=== PATIENT | female | born 1950 | race Caucasian/White ===

== ENCOUNTER → 2023-09-07 08:09 | Outpatient (REF) | payer MEDICARE, OTHER, SELFPAY ==
[2023-09-07 10:32] LABS: ALT (SGPT) 21 U/L (0-35); AST (SGOT) 25 U/L (14-36); Albumin 4.1 g/dl (3.5-5.0); Alkaline Phosphatase 129 U/L (38-126); Blood Urea Nitrogen 12 mg/dl (7-17); Calcium 9.4 mg/dl (8.4-10.2); Carbon Dioxide 26 mmol/L (22-30); Chloride 106 mmol/L (98-107); Glucose 102 mg/dl (70-99); Potassium 4.2 mmol/L (3.5-5.1); Sodium 139 mmol/L (135-145); Total Bilirubin 0.5 mg/dl (0.2-1.3); Total Protein 6.7 g/dl (6.3-8.2); Uric Acid 4.9 mg/dl (2.5-6.2); eGFR > 60.00
== END ==
LOC: REG 08:09
PROVIDERS: ATTENDING PHYSICIAN Internal Medicine Rheumatology; FAMILY PHYSICIAN Family Medicine
DX: M81.0 Age-related osteoporosis without current pathological fracture (principal)
CPT/HCPCS: 36415; 80053; 84550

== ENCOUNTER → 2023-12-03 08:06 | Outpatient (REF) | payer MEDICARE, OTHER, SELFPAY ==
[2023-12-03 10:27] LABS: % Basophils 0.3 % (0-2); % Eosinophils 3.1 % (0-6); % Immature Granulocytes 0.1 % (0-0.5); % Lymphocytes 24.3 % (20.5-51.1); % Monocytes 8.4 % (1.7-9.3); % Neutrophils 63.8 % (42.2-75.2); Absolute Eosinophils 0.2 10^3/uL (0-0.7); Absolute Lymphocytes 1.6 10^3/uL (1.2-3.4); Absolute Monocytes 0.6 10^3/uL (0.1-0.6); Absolute Neutrophils 4.3 10^3/uL (1.4-6.5); Hematocrit 45.4 % (37.0-47.0); Hemoglobin 14.5 g/dL (12.0-16.0); Mean Corp Hgb Conc. 31.9 g/dL (33.0-37.0); Mean Corpuscular Hgb 28.4 pg (27.0-31.0); Mean Platelet Volume 11.5 fL (7.4-10.4); Nucleated Red Blood Cells % 0 %; Platelet Count 271 10^3/uL (130-400); White Blood Cell Count 6.7 10^3/uL (4.8-10.8)
[2023-12-03 11:15] LABS: ALT (SGPT) 24 U/L (0-35); AST (SGOT) 29 U/L (14-36); Alkaline Phosphatase 128 U/L (38-126); Blood Urea Nitrogen 12 mg/dl (7-17); Calcium 9.6 mg/dl (8.4-10.2); Carbon Dioxide 26 mmol/L (22-30); Chloride 106 mmol/L (98-107); Glucose 105 mg/dl (70-99); HDL Cholesterol 65 mg/dl; LDL Cholesterol, Calculated 98 mg/dl; Potassium 4.3 mmol/L (3.5-5.1); Sodium 140 mmol/L (135-145); Total Bilirubin 0.5 mg/dl (0.2-1.3); Total Cholesterol 193 mg/dl (50-199); Total Protein 6.9 g/dl (6.3-8.2); Triglyceride 153 mg/dl (10-149); Very Low Density Lipoprotein 30 mg/dl (0-30); eGFR > 60.00
== END ==
LOC: REG 08:06
PROVIDERS: ATTENDING PHYSICIAN Family Medicine
DX: I10 Essential (primary) hypertension (principal); R74.8 Abnormal levels of other serum enzymes; E78.00 Pure hypercholesterolemia, unspecified; D72.819 Decreased white blood cell count, unspecified
CPT/HCPCS: 36415; 80053; 80061; 85025

== ENCOUNTER 2024-09-11 19:36 | Inpatient (IN) | payer MEDICARE, OTHER, SELFPAY ==
[2024-09-11 16:56] VITALS: BP 152/78; BMI 24.2
--- NOTE | 2024-09-11 17:08 | ED.GENMED ---
History of Present Illness
General
Chief Complaint: Breathing Problem
Time Seen by Provider: 09/11/24 17:00
History of Present Illness
History of Present Illness:
Patient is a 73-year-old woman with history of hypertension presenting to the emergency room with respiratory distress. Patient states for the past 2 days she has had a sore throat, fever congestion cough. She states that her family member was
recently diagnosed with the flu. She denies any chest pain. Mild shortness of breath. No nausea. No vomiting. No diarrhea. No leg swelling hemoptysis recent travel malignancy or history of blood clot. Per medics on their arrival she was found
to be 80% on room air. They placed on nasal cannula that brought her up to the mid 80s
Past History
Past History
ED Past Medical History: GERD and Other (Osteoporosis)
Social History
Tobacco: Non-smoker
Alcohol: Occasional
Drug: None
Personal:
Living: with family
Phy Exam
Physical Exam
Physical Exam:
GENERAL: Appears unwell
HEENT: normocephalic, extraocular movements intact, moist oral mucosa
NECK: normal inspection
RESPIRATORY: Mild respiratory distress, coarse breath sounds in all lung field
CARDIOVASCULAR: regular rate and rhythm
ABDOMEN/: soft, non-distended, non-tender to palpation, no rebound or guarding
EXTREMITIES: non-tender, no edema/swelling
NEUROLOGIC: awake and alert, moves all extremities
SKIN: warm
Scores
Heart Failure Risk
Heart Failure Risk Score: Not Applicable
Sepsis
Sepsis Screening
Sepsis Assessment: Sepsis
Sepsis Screen
Sepsis Screen: Sepsis
Date: 09/11/24
Time: 17:55
Course
Orders/Labs/Results
Orders:
Orders
09/11/24 17:06
EKG [Electrocardiogram (*1)] Urgent
Reason for Study: Tachycardia
EKG- Treatment ONCE
CR Chest Portable - 1 View Urgent
Comment:
Reason For Exam: SOB
Reason Study Needs to be Portable: Unable to Transport
09/11/24 17:12
Blood Culture Urgent
SARI Source: Blood/Venous
Specimen Description:
09/11/24 17:15
COVID-19 Antigen Urgent
Source: Nasal Swab
Complete Blood Count/With Diff Urgent
Comprehensive Metabolic Panel Urgent
Lactic Acid Urgent
Blood Culture Urgent
SARI Source: Blood/Venous
Specimen Description:
Influenza A+B Rapid Molecular Urgent
SARI Source: Nasal Swab
Specimen Description:
09/11/24 17:19
Acetaminophen [Tylenol] 1,000 mg PO NOW STA
09/11/24 17:31
Azithromycin 500 mg/250 ml [Zithromax Infusion] 500 mg in 250 ml IV NOW
CefTRIAXone [Rocephin] 1,000 mg IV NOW STA
Ibuprofen [Motrin] 600 mg .ROUTE .STK-MED ONE
09/11/24 17:33
Ibuprofen [Motrin] 600 mg PO NOW STA
09/11/24 17:48
Lactated Ringers [Lr] 1,000 ml IV BOLUS
Abnormal Lab Results
09/11/24
17:15
MPV 11.2 H fL
(7.4-10.4)
Absolute Neuts (auto) 8.1 H 10^3/uL
(1.4-6.5)
Absolute Lymphs (auto) 1.1 L 10^3/uL
(1.2-3.4)
Absolute Monos (auto) 1.1 H 10^3/uL
(0.1-0.6)
Neutrophils % 78.1 H %
(42.2-75.2)
Lymphocytes % 10.6 L %
(20.5-51.1)
Monocytes % 10.8 H %
(1.7-9.3)
Sodium 133 L mmol/L
(135-145)
Glucose 136 H mg/dl
(70-99)
AST 71 H U/L
(14-36)
ALT 63 H U/L
(0-35)
09/11/24 17:15
09/11/24 17:15
Vital Signs
Initial and Last Documented VS:
Initial Vital Signs
Temp Pulse Resp BP Pulse Ox
100.4 F H 98 24 152/78 82
09/11/24 16:56 09/11/24 16:56 09/11/24 16:56 09/11/24 16:56 09/11/24 16:56
Last Documented Vital Signs
Temp Pulse Resp BP Pulse Ox
100.4 F H 96 22 152/78 92
09/11/24 16:56 09/11/24 17:09 09/11/24 17:09 09/11/24 16:56 09/11/24 17:12
MDM/Problems Addressed
Differential Diagnosis Includes:
Patient is a 73-year-old woman presenting to the emergency room with shortness of breath. On arrival patient was in the low 80s on 6 L. We transition her to nonrebreather that brought her up to the low 90s She is febrile. Exam does coarse breath
sounds in all lung ambrose. Differential clues of viral infection versus pneumonia. Considered PE though less likely as patient has been having fevers chills and other URI symptoms. Will check blood work EKG chest x-ray. Will check respiratory
swab. Will discuss with respiratory about possibly starting high flow.
*Critical Care Note
Total Time (30-74mins, 75-104mins- exclusive of procedures): 37
comment:
Critical care statement: A total of 37 minutes of critical care time was provided for this patient. This includes management of unstable vital signs, evaluation of the patient at bedside, reviewing the patient's pertinent medical records, ordering
and reviewing studies, arranging urgent treatment with development of a management plan, evaluating patient's response to treatment, frequent reassessment, and discussion with consultants. This time was separate from time utilized to perform the
aforementioned documented procedures.
Update Note
Update Note:
Respiratory place patient on mid flow. Initially she was in the 90s however then dropped to 89%. Placed nonrebreather on top of mid flow and page respiratory back for high flow. Goals of care conversation was discussed. She is a full code.
Chest x-ray per prime interpretation with right-sided pneumonia. She meets criteria for sepsis. Will give fluids and empiric antibiotics. Cultures were obtained.
She is positive for flu. Patient's pulse ox has improved on HFNC. lactic acid normal. Discussed with hospitalist accepted patient to their service. Pending CMP at time of admission
ED Attending Note
-
Portions of this chart may have been created with voice recognition software.� Occasional wrong word or��sound alike� substitutions may have occurred due to the inherent limitations of voice recognition software.
Discharge Plan
Departure
Patient Disposition: Admit
Date of Disposition: 09/11/24
Time of Disposition: 17:55
Presentation/result/management discussed w/ accepting MD/DO: Hospitalist
Discharge Problem:
Influenza A
Prescriptions:
No Action
amlodipine 5 mg Tablet
5 mg PO DAILY
omeprazole 20 mg Capsule,Delayed Release(Dr/Ec)
20 mg PO DAILY
raloxifene 60 mg Tablet
60 mg PO DAILY
multivitamin Tablet
1 tab PO DAILY
Interventions
Interventions:
*Risk Screen - Suicide Last Done: 09/11/24 16:56
*General Assessment Last Done: 09/11/24 16:56
*Neglect/Abuse Screening Last Done: 09/11/24 16:56
*ED- Fall Risk Assessment Last Done: 09/11/24 16:56
*ED COVID-19 Vaccine History Last Done: 09/11/24 16:56
ED- Cardiac Assessment Last Done: 09/11/24 17:32
Discharge Date and Time
Print Language: MALTESE
[2024-09-11 17:39] LABS: % Basophils 0.2 % (0-2); % Immature Granulocytes 0.3 % (0-0.5); % Lymphocytes 10.6 % (20.5-51.1); % Monocytes 10.8 % (1.7-9.3); % Neutrophils 78.1 % (42.2-75.2); Absolute Lymphocytes 1.1 10^3/uL (1.2-3.4); Absolute Monocytes 1.1 10^3/uL (0.1-0.6); Absolute Neutrophils 8.1 10^3/uL (1.4-6.5); Hematocrit 46.4 % (37.0-47.0); Hemoglobin 15.6 g/dL (12.0-16.0); Mean Corp Hgb Conc. 33.6 g/dL (33.0-37.0); Mean Corpuscular Hgb 29.3 pg (27.0-31.0); Mean Corpuscular Volume 87.2 fL (81.0-99.0); Mean Platelet Volume 11.2 fL (7.4-10.4); Nucleated Red Blood Cells % 0 %; Platelet Count 198 10^3/uL (130-400); Red Blood Cell Count 5.32 10^6/uL (4.20-5.40); White Blood Cell Count 10.4 10^3/uL (4.8-10.8)
[2024-09-11] MEDS: MOTRIN 600 MG PO (17:46)
[2024-09-11 17:48] LABS: Lactic Acid 1.3 mmol/L (0.7-2.0)
[2024-09-11] MEDS: ROCEPHIN 1000 MG IV (17:48)
[2024-09-11 17:51] LABS: COVID-19 Antigen Negative (Negative)
[2024-09-11] MEDS: ZITHROMAX INFUSION 250 IV (17:53)
[2024-09-11 17:55] LABS: ALT (SGPT) 63 U/L (0-35); AST (SGOT) 71 U/L (14-36); Albumin 3.9 g/dl (3.5-5.0); Alkaline Phosphatase 107 U/L (38-126); Blood Urea Nitrogen 17 mg/dl (7-17); Calcium 9.6 mg/dl (8.4-10.2); Carbon Dioxide 24 mmol/L (22-30); Chloride 99 mmol/L (98-107); Estimated Creatinine Clearance 48 ml/min; Glucose 136 mg/dl (70-99); Potassium 4.3 mmol/L (3.5-5.1); Sodium 133 mmol/L (135-145); Total Bilirubin 0.5 mg/dl (0.2-1.3); Total Protein 6.8 g/dl (6.3-8.2); eGFR > 60.00
[2024-09-11] MEDS: LR 1000 IV (17:57)
[2024-09-11 18:00] VITALS: BP 132/76
[2024-09-11 19:09] VITALS: BP 112/65
--- NOTE | 2024-09-11 19:22 | HPS.HSE ---
Family Physician
-
Family Physician: Deya Parsons
Chief Complaint
-
shortness of breath
History of Present Illness
73-year-old female past medical history of hypertension, GERD, osteoporosis, presenting with shortness of breath. For the past 2 days she has had sore throat, fever and congestion and dry cough. Multiple family members with flulike symptoms.
Denies chest pain. Denies nausea or vomiting. She was found to be saturating 80% on room air.
She does not smoke or drink alcohol.
Medical History
Past Medical History
Past Medical History: Reports Other ( hypertension, GERD, osteoporosis,)
Past Surgical History: Reports Other (Tonsillectomy)
Social History
Tobacco: Non-smoker
Alcohol: None
Drug: None
Family History
Family History: Not pertinent
Allergies / Home Medications
Allergies reflects when Allergies were last updated in [facility].
Home Medications with original date entered in [facility]
Allergy/Medication List:
Allergies
Allergy/AdvReac Type Severity Reaction Status Date / Time
amoxicillin Allergy Unknown Verified 09/11/24 17:20
Home Medications
amlodipine 5 mg tablet 5 mg PO DAILY 09/11/24
multivitamin 1 tab PO DAILY 09/11/24
omeprazole 20 mg capsule,delayed release 20 mg PO DAILY 09/11/24
raloxifene 60 mg tablet 60 mg PO DAILY 09/11/24
Review of Systems
-
History Source: Patient
A 12 point ROS was completed and negative except as noted: Yes
Constitutional: Reports No Symptoms
EENT: Reports See HPI
Respiratory: Reports See HPI
Cardiac: Reports No Symptoms
Abdomen/GI: Reports No Symptoms
: Reports No Symptoms
Musculoskeletal: Reports No Symptoms
Skin: Reports No Symptoms
Neurological: Reports No Symptoms
Endocrine: Reports No Symptoms
Hematologic/Lymphatic: Reports No Symptoms
Psych: Reports No Symptoms
Physical Exam
Vital Signs
Vital Signs
Temp Pulse Resp BP Pulse Ox
100.4 F H 85 27 112/65 94
09/11/24 16:56 09/11/24 19:09 09/11/24 19:09 09/11/24 19:09 09/11/24 19:09
Physical Exam
General: Well Developed, Well Nourished and No Apparent Distress
HEENT: NormoCephalic, Moist mucous membranes and Atraumatic
Respiratory: Clear
Cardiac: S1/S2 and Regular Rhythm; No Murmur or Rub
GI: Soft, Non Tender, Non Distended and Normal Bowel Sounds; No Organomegaly
Rectal: Deferred by Provider
Musculoskeletal: No Clubbing, No Cyanosis and No Edema
Skin: No Rash
Neuro: Nonfocal/grossly intact
Laboratory Results
-
09/11/24 17:15
09/11/24 17:15
Laboratory Results
Lactic Acid 1.3 mmol/L (0.7-2.0) 09/11/24 17:15
Total Bilirubin 0.5 mg/dl (0.2-1.3) 09/11/24 17:15
AST 71 U/L (14-36) H 09/11/24 17:15
ALT 63 U/L (0-35) H 09/11/24 17:15
Alkaline Phosphatase 107 U/L (38-126) 09/11/24 17:15
Data Reviewed
-
Lab Data: Labs Reviewed by me
Old Records: Reviewed
Impression/Plan
-
IMPRESSION:
PLAN:
# Sepsis (fever, tachycardia) secondary to Influenza A Infection
# Mild right basilar atelectasis/pneumonia
-Chest x-ray showed mild right base atelectasis/pneumonia
-Blood cultures
-Tamiflu
-Ceftriaxone/doxycycline
-IV fluids
-Patient requiring high flow
# Transaminitis secondary to influenza
-Continue to monitor
Essential hypertension
-Continue amlodipine
GERD
-Continue omeprazole
Osteoporosis
-Continue raloxifene
Full code
DVT prophylaxis�heparin
Regular diet
[2024-09-11 20:00] VITALS: BP 115/61
[2024-09-11] MEDS: TAMIFLU 75 MG PO (20:05)
[2024-09-11 20:56] VITALS: BP 107/80
[2024-09-11] MEDS: NSS 1000 IV (21:45)
[2024-09-11] MEDS: HEPARIN 5000 UNITS SC (21:45)
[2024-09-11 22:00] VITALS: BP 114/60
[2024-09-12] VITALS (12 sets, daily range): BP systolic 104–147; BP diastolic 54–98; BMI 22.8
--- NOTE | 2024-09-12 00:12 | PTCARENOTE ---
assumed care of patient. pt is AAOx3, able to make needs known. VSS. pt is on HFNC, 60L 100%, 94%. SOB on exertion, tachypneic with a dry cough. pt does admit to having trouble taking a deep breath. pt was able to use BSCx1 assist with NRB mask
over top HFNC. oxygen remained WNL during ambulation. IV hung and infusing in left AC. pt oriented to new room, call morrell within reach, care ongoing.
[2024-09-12 05:47] LABS: Hematocrit 41.8 % (37.0-47.0); Hemoglobin 14.1 g/dL (12.0-16.0); Mean Corp Hgb Conc. 33.7 g/dL (33.0-37.0); Mean Corpuscular Hgb 29.4 pg (27.0-31.0); Mean Corpuscular Volume 87.3 fL (81.0-99.0); Mean Platelet Volume 10.9 fL (7.4-10.4); Platelet Count 166 10^3/uL (130-400); Red Blood Cell Count 4.79 10^6/uL (4.20-5.40); Red Cell Dist. Width 13.1 % (11.5-14.5); White Blood Cell Count 9.2 10^3/uL (4.8-10.8)
[2024-09-12 05:48] LABS: ALT (SGPT) 47 U/L (0-35); AST (SGOT) 47 U/L (14-36); Albumin 3.3 g/dl (3.5-5.0); Alkaline Phosphatase 86 U/L (38-126); Blood Urea Nitrogen 14 mg/dl (7-17); Calcium 9.1 mg/dl (8.4-10.2); Carbon Dioxide 20 mmol/L (22-30); Chloride 104 mmol/L (98-107); Estimated Creatinine Clearance 81 ml/min; Glucose 118 mg/dl (70-99); Potassium 4.4 mmol/L (3.5-5.1); Sodium 134 mmol/L (135-145); Total Bilirubin 0.6 mg/dl (0.2-1.3); Total Protein 5.7 g/dl (6.3-8.2); eGFR > 60.00
[2024-09-12 07:22] LABS: Absolute Neutrophils -Man Diff 7.9 10^3/uL (1.4-6.5); Band Neutrophils 21 % (0-3); Lymphocytes 7 % (20-51); Monocytes 7 % (2-9); Normal RBC Morphology Yes; Platelets Checked Yes; Segmented Neutrophils 65 % (42-75); Total Cells Counted 100
[2024-09-12] MEDS: NSS 1000 IV ×2 (08:07→19:50)
[2024-09-12] MEDS: VIBRAMYCIN 260 MG IV (08:08)
[2024-09-12] MEDS: PROTONIX 40 MG PO (08:10)
[2024-09-12] MEDS: TAMIFLU 30 MG PO (08:11)
[2024-09-12] MEDS: NORVASC 5 MG PO (08:11)
[2024-09-12] MEDS: THERAGRAN 1 TABLET PO (08:11)
[2024-09-12] MEDS: EVISTA 60 MG PO (08:11)
[2024-09-12] MEDS: HEPARIN 5000 UNITS SC ×2 (08:11→19:51)
--- NOTE | 2024-09-12 08:51 | W.PN.HOSP.TC ---
Today's Communication/Plan
-
Still on high flow oxygen, although FiO2 has been able to be decreased today from 100% to 80%
Continue Tamiflu and antibiotics
Pulmonary Toilet
Out of bed as tolerated
Assessment / Plan
Assessment / Plan
Physical Exam
General: Well Developed, Well Nourished and No Apparent Distress
HEENT: NormoCephalic, Moist mucous membranes and Atraumatic
Respiratory: Clear
Cardiac: S1/S2 and Regular Rhythm; No Murmur or Rub
GI: Soft, Non Tender, Non Distended and Normal Bowel Sounds; No Organomegaly
Rectal: Deferred by Provider
Musculoskeletal: No Clubbing, No Cyanosis and No Edema
Skin: No Rash
Neuro: Nonfocal/grossly intact
Assessment/Plan
73-year-old female with past medical history of hypertension, GERD and osteoporosis, presented with shortness of breath. For the 2 days prior to arrival, patient has had sore throat, fever, congestion and dry cough. Multiple family members with
flulike symptoms. Denied chest pain. Denied nausea or vomiting. She was found to be saturating 80% on room air. She does not smoke or drink alcohol.
# Sepsis (fever, tachycardia) secondary to Influenza A Infection and Community Acquired Pneumonia
# Mild right basilar atelectasis/pneumonia
-Chest x-ray showed mild right base atelectasis/pneumonia
-Blood cultures
-Tamiflu
-Ceftriaxone/doxycycline
-IV fluids
-Patient still requiring high flow, although FiO2 has decreased from 100% to 80% today
-Mucinex, Incentive Spirometer, Acapella Device, QID Duonebs
# Transaminitis secondary to influenza
-Continue to monitor
Essential hypertension
-Continue amlodipine
GERD
-Continue omeprazole
Osteoporosis
-Continue raloxifene
Full code
DVT prophylaxis�heparin, transition to Lovenox tomorrow
Regular diet
Anticipated Discharge: > 48 hours
Subjective/Interval History
-
Date of Service: September 12, 2024
Patient was seen and examined. Both patient and nurse reported patient has not had any productive cough, and patient also did not report any chest congestion or shortness of breath. She has been having some dry cough, denied any chest pain.
Objective Data
-
Labs:
Laboratory Results
09/12/24
05:11
WBC 9.2
Hgb 14.1
Hct 41.8
Plt Count 166
Sodium 134 L
Potassium 4.4
Chloride 104
Carbon Dioxide 20 L
BUN 14
Creatinine 0.6
Glucose 118 H
Calcium 9.1
Total Bilirubin 0.6
AST 47 H
ALT 47 H
Alkaline Phosphatase 86
Vital Signs:
Vital Signs
Temp Pulse Resp BP Pulse Ox
100.1 F 92 24 131/67 97
09/12/24 03:00 09/12/24 08:11 09/12/24 06:06 09/12/24 08:11 09/12/24 08:20
[2024-09-12] MEDS: DUONEB 3 ML INH ×2 (15:22→21:07)
[2024-09-12] MEDS: ROCEPHIN 1000 MG IV (17:12)
[2024-09-12] MEDS: STERILE WATER FOR INJECTION 10 ML IV (17:12)
--- NOTE | 2024-09-12 17:35 | PTCARENOTE ---
Patient AOx3. HFNC weaned by RT to keep SpO2 greater than 92%. Patient has HIGUERA. Dry cough. IS encouraged. NSR on monitor. Assist x1 when OOB. Patient utilizes bedside commode with yellow urine. IVF running per order. Call morrell within reach, bed in
lowest position, and bed of wheels locked.
--- NOTE | 2024-09-12 17:54 | CM ---
Patient with Dx Sepsis secondary to Influenza A Infection and Community Acquired Pneumonia. High flow O2. Receiving IVF, IV Abx, Tamiflu.
Met with patient, and daughter Gladis;
the patient resides with her in a 2 story house with 4 DORA.
The patient was independent in ADLs and ambulation.
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
DME - RW, shower bench
No prior VN or SNF.
PCP - Deya Parsons
Pharmacy - [facility]
Plan follow patient's O2 needs, mobility.
Plan TBD.
[2024-09-12] MEDS: VIBRAMYCIN 100 MG PO (19:50)
[2024-09-12] MEDS: MUCINEX 600 MG PO (19:51)
[2024-09-12] MEDS: TAMIFLU 75 MG PO (19:51)
--- NOTE | 2024-09-12 22:48 | PTCARENOTE ---
pt received from previous RN. pt AAOx3. NSR on monitor. pt on hiflow nasal canula 50/70. satting 90-94%. using BSCx1. steady gait. Hs oral hygiene supplies provided. Assessment as documented. Call light in reach.
[2024-09-13] VITALS (12 sets, daily range): BP systolic 105–138; BP diastolic 60–74
[2024-09-13] MEDS: NSS 1000 IV ×2 (04:36→15:07)
[2024-09-13 05:33] LABS: % Basophils 0.3 % (0-2); % Immature Granulocytes 0.7 % (0-0.5); % Lymphocytes 14.7 % (20.5-51.1); % Monocytes 5.2 % (1.7-9.3); % Neutrophils 79.1 % (42.2-75.2); Absolute Immature Granulocytes 0.1 10^3/uL (0-0.05); Absolute Lymphocytes 1.5 10^3/uL (1.2-3.4); Absolute Monocytes 0.5 10^3/uL (0.1-0.6); Absolute Neutrophils 8.2 10^3/uL (1.4-6.5); Hematocrit 41.1 % (37.0-47.0); Hemoglobin 13.2 g/dL (12.0-16.0); Mean Corp Hgb Conc. 32.1 g/dL (33.0-37.0); Mean Corpuscular Hgb 29.1 pg (27.0-31.0); Mean Corpuscular Volume 90.7 fL (81.0-99.0); Mean Platelet Volume 11.5 fL (7.4-10.4); Nucleated Red Blood Cells % 0 %; Platelet Count 184 10^3/uL (130-400); Red Blood Cell Count 4.53 10^6/uL (4.20-5.40); Red Cell Dist. Width 13.3 % (11.5-14.5); White Blood Cell Count 10.4 10^3/uL (4.8-10.8)
[2024-09-13 05:52] LABS: ALT (SGPT) 30 U/L (0-35); AST (SGOT) 34 U/L (14-36); Albumin 2.9 g/dl (3.5-5.0); Alkaline Phosphatase 86 U/L (38-126); Blood Urea Nitrogen 11 mg/dl (7-17); Calcium 8.9 mg/dl (8.4-10.2); Carbon Dioxide 26 mmol/L (22-30); Chloride 104 mmol/L (98-107); Estimated Creatinine Clearance 70 ml/min; Glucose 87 mg/dl (70-99); Potassium 4.4 mmol/L (3.5-5.1); Sodium 136 mmol/L (135-145); Total Bilirubin 0.6 mg/dl (0.2-1.3); Total Protein 5.2 g/dl (6.3-8.2); eGFR > 60.00
--- NOTE | 2024-09-13 07:51 | PN.CDI ---
CDI
- -
CDI:
Physician Documentation Request
Admit Date: 09/11/24 19:36
Dear Doctor Kiera,
Patient admitted with sepsis.
09/12 PN, 'She was found to be saturating 80% on room air....Still on high flow oxygen....'
Oxygen liters per minute documented below:
Selected Entries
09/11/24
17:25 09/11/24
23:39 09/12/24
11:56
Nasal Cannula flow liters per minute 55 60 55
09/12/24
12:50 09/12/24
17:19 09/13/24
07:56
Nasal Cannula flow liters per minute 55 50 50
Please provide in your note the diagnosis associated with above oxygen use:
Acute hypoxic respiratory failure
Hypoxia only
Other
Use of terms such as suspected, likely, concern for, or probable (associated with a specific diagnosis that is being evaluated, monitored, or treated as if it exists) are acceptable and can be coded in the inpatient setting, when documented at the
time of discharge.
Thank you,
Alicia SOSA,RN,CCDS
CDI Specialist
Available via tiger text
Please use your independent medical judgment in providing your response.
[2024-09-13] MEDS: DUONEB 3 ML INH ×4 (07:52→19:18)
[2024-09-13] MEDS: NORVASC 5 MG PO (08:25)
[2024-09-13] MEDS: PROTONIX 40 MG PO (08:25)
[2024-09-13] MEDS: MUCINEX 600 MG PO ×2 (08:26→20:05)
[2024-09-13] MEDS: VIBRAMYCIN 100 MG PO ×2 (08:26→20:05)
[2024-09-13] MEDS: EVISTA 60 MG PO (08:26)
[2024-09-13] MEDS: THERAGRAN 1 TABLET PO (08:26)
[2024-09-13] MEDS: TAMIFLU 75 MG PO ×2 (08:26→20:05)
--- NOTE | 2024-09-13 15:02 | W.PN.HOSP.TC ---
Today's Communication/Plan
-
See plan
Assessment / Plan
Assessment / Plan
Physical Exam
General: Well Developed, Well Nourished and No Apparent Distress
HEENT: Normocephalic, Moist mucous membranes and Atraumatic
Respiratory: Scattered rhonchi bilaterally
Cardiac: S1/S2 and Regular Rhythm
GI: Soft, Non Tender, Non Distended and Normal Bowel Sounds
Musculoskeletal: No Cyanosis and No Edema
Skin: Warm. Dry.
Neuro: AAOx3. Nonfocal/grossly intact
Assessment/Plan
73-year-old female with past medical history of hypertension, GERD and osteoporosis, presented with shortness of breath. For the 2 days prior to arrival, patient has had sore throat, fever, congestion and dry cough. Multiple family members with
flulike symptoms. Denied chest pain. Denied nausea or vomiting. She was found to be saturating 80% on room air. She does not smoke or drink alcohol.
# Sepsis (fever, tachycardia) secondary to Influenza A Infection and Community Acquired Pneumonia
# Mild right basilar atelectasis/pneumonia
# Influenza A
# Acute hypoxic respiratory failure secondary to the above
-Chest x-ray showed mild right base atelectasis/pneumonia
-Blood cultures with no growth to date
-Tamiflu
-Ceftriaxone/doxycycline
-IV fluids
-Patient still requiring high flow, although FiO2 has decreased from 100% to 80% to 70% (over the past 24 hours)
-Mucinex 1200 mg BID, 3% saline nebulizer, vest therapy, Incentive Spirometer Q1H while awake, Acapella Device, QID Duonebs+Pulmicort, Out of Bed to Chair, Aspiration Precautions, HOB>30 to 45 degrees
-Check Legionella and Strep pneumoniae antigen
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
# Transaminitis secondary to influenza
-Continue to monitor
Essential hypertension
-Continue amlodipine
GERD
-Continue omeprazole
Osteoporosis
-Continue raloxifene
Full code
DVT prophylaxis�SCDs. Lovenox.
Regular diet
Anticipated Discharge: > 48 hours
Subjective/Interval History
-
Date of Service: September 13, 2024
Patient was seen and examined. She reported maybe a slight improvement in how she feels, discussed case with patient's nurse, oxygen requirement has decreased in the past 24 hours.
Objective Data
-
Labs:
Laboratory Results
09/13/24
04:24
WBC 10.4
Hgb 13.2
Hct 41.1
Plt Count 184
Sodium 136
Potassium 4.4
Chloride 104
Carbon Dioxide 26
BUN 11
Creatinine 0.7
Glucose 87
Calcium 8.9
Total Bilirubin 0.6
AST 34
ALT 30
Alkaline Phosphatase 86
Vital Signs:
Vital Signs
Temp Pulse Resp BP Pulse Ox
99.0 F 88 28 138/60 95
09/13/24 07:39 09/13/24 12:00 09/13/24 12:00 09/13/24 12:00 09/13/24 12:33
I&O
09/12/24 09/13/24 09/14/24
06:59 06:59 06:59
Intake Total 2160 / 2160 240 / 240
Balance 2160 / 2160 240 / 240
[2024-09-13] MEDS: NSS IV (15:48)
--- NOTE | 2024-09-13 16:40 | PTCARENOTE ---
Patient AOx3. HFNC weaned by RT to keep SpO2 greater than 92%. Patient has HIGUERA. Moist productive cough. Sputum is thick and dykes. IS encouraged. NSR on monitor. Assist x1 when OOB. Patient utilizes bedside commode with yellow urine. IVF running per
order. Call morrell within reach, bed in lowest position, and bed of wheels locked.
[2024-09-13] MEDS: LOVENOX 40 MG SC (17:14)
[2024-09-13] MEDS: STERILE WATER FOR INJECTION 10 ML IV (17:14)
[2024-09-13] MEDS: ROCEPHIN 1000 MG IV (17:14)
[2024-09-14] VITALS (11 sets, daily range): BP systolic 91–145; BP diastolic 62–111
--- NOTE | 2024-09-14 02:30 | PTCARENOTE ---
assumed care of patient. pt is AAOx3, able to make needs known. VSS. on HFNC 45L 50%, 94%. pt able to use BSCx1 without issues. NSR on the monitor. some slight SOB on exertion but stable. no c/o pain. care ongoing.
[2024-09-14] MEDS: NSS 1000 IV (05:29)
[2024-09-14 06:06] LABS: % Basophils 0.2 % (0-2); % Eosinophils 0.2 % (0-6); % Immature Granulocytes 0.5 % (0-0.5); % Monocytes 7.3 % (1.7-9.3); % Neutrophils 69.8 % (42.2-75.2); Absolute Lymphocytes 1.3 10^3/uL (1.2-3.4); Absolute Monocytes 0.4 10^3/uL (0.1-0.6); Absolute Neutrophils 4.1 10^3/uL (1.4-6.5); Hematocrit 36.6 % (37.0-47.0); Mean Corp Hgb Conc. 32.8 g/dL (33.0-37.0); Mean Corpuscular Hgb 28.8 pg (27.0-31.0); Mean Corpuscular Volume 87.8 fL (81.0-99.0); Mean Platelet Volume 10.8 fL (7.4-10.4); Nucleated Red Blood Cells % 0 %; Platelet Count 177 10^3/uL (130-400); Red Blood Cell Count 4.17 10^6/uL (4.20-5.40); Red Cell Dist. Width 13.2 % (11.5-14.5); White Blood Cell Count 5.9 10^3/uL (4.8-10.8)
[2024-09-14 06:36] LABS: AST (SGOT) 27 U/L (14-36); Albumin 2.6 g/dl (3.5-5.0); Alkaline Phosphatase 87 U/L (38-126); Blood Urea Nitrogen 7 mg/dl (7-17); Calcium 8.8 mg/dl (8.4-10.2); Carbon Dioxide 26 mmol/L (22-30); Chloride 107 mmol/L (98-107); Estimated Creatinine Clearance 81 ml/min; Glucose 99 mg/dl (70-99); Potassium 3.9 mmol/L (3.5-5.1); Sodium 138 mmol/L (135-145); Total Bilirubin 0.4 mg/dl (0.2-1.3); Total Protein 4.9 g/dl (6.3-8.2); eGFR > 60.00
[2024-09-14 06:45] LABS: ALT (SGPT) 25 U/L (0-35)
--- NOTE | 2024-09-14 07:01 | W.PN.HOSP.TC ---
Today's Communication/Plan
-
Continue antibiotics, Tamiflu, pulmonary toilet
Still on high flow oxygen but oxygen requirement is going down
Assessment / Plan
Assessment / Plan
Physical Exam
General: Well Developed, Well Nourished and No Apparent Distress
HEENT: Normocephalic, Moist mucous membranes and Atraumatic
Respiratory: Scattered rhonchi bilaterally
Cardiac: S1/S2 and Regular Rhythm
GI: Soft, Non Tender, Non Distended and Normal Bowel Sounds
Musculoskeletal: No Cyanosis and No Edema
Skin: Warm. Dry.
Neuro: AAOx3. Nonfocal/grossly intact
Assessment/Plan
73-year-old female with past medical history of hypertension, GERD and osteoporosis, presented with shortness of breath. For the 2 days prior to arrival, patient has had sore throat, fever, congestion and dry cough. Multiple family members with
flulike symptoms. Denied chest pain. Denied nausea or vomiting. She was found to be saturating 80% on room air. She does not smoke or drink alcohol.
# Sepsis (fever, tachycardia) secondary to Influenza A Infection and Community Acquired Pneumonia
# Mild right basilar atelectasis/pneumonia
# Influenza A
# Acute hypoxic respiratory failure secondary to the above
-Chest x-ray showed mild right base atelectasis/pneumonia
-Blood cultures with no growth to date
-Tamiflu
-Ceftriaxone/doxycycline
-Patient still requiring high flow, although FiO2 has decreased from 100% to 80% to 70% (yesterday) to 50% (today)
-Mucinex 1200 mg BID, 3% saline nebulizer, vest therapy, Incentive Spirometer Q1H while awake, Acapella Device, QID Duonebs+Pulmicort, Out of Bed to Chair, Aspiration Precautions, HOB>30 to 45 degrees
-Legionella and Strep pneumoniae antigen are both negative
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
# Transaminitis - RESOLVED - secondary to influenza
-Continue to monitor
#Essential Hypertension
-Continue amlodipine
#GERD
-Continue omeprazole
#Osteoporosis
-Continue raloxifene
Code Status: Full code
DVT Prophylaxis: SCDs. [place].
Regular diet
Anticipated Discharge: > 48 hours
Subjective/Interval History
-
Date of Service: September 14, 2024
Patient was seen and examined. She denied any new symptoms or complaints, had some nausea later in the day however.
Objective Data
-
Labs:
Laboratory Results
09/14/24
05:32
WBC 5.9
Hgb 12.0
Hct 36.6 L
Plt Count 177
Sodium 138
Potassium 3.9
Chloride 107
Carbon Dioxide 26
BUN 7
Creatinine 0.6
Glucose 99
Calcium 8.8
Total Bilirubin 0.4
AST 27
ALT 25
Alkaline Phosphatase 87
Vital Signs:
Vital Signs
Temp Pulse Resp BP Pulse Ox
98.3 F 79 21 129/67 93
09/14/24 02:35 09/14/24 06:33 09/14/24 06:33 09/14/24 06:33 09/14/24 06:33
I&O
09/13/24 09/14/24 09/15/24
06:59 06:59 06:59
Intake Total 2160 / 2160 720 / 720
Balance 2160 / 2160 720 / 720
[2024-09-14] MEDS: DUONEB 3 ML INH ×4 (07:34→19:30)
[2024-09-14] MEDS: SODIUM CHLORIDE 3% FOR INHALATION 1 VIAL INH ×4 (07:42→19:30)
[2024-09-14] MEDS: PULMICORT 0.25 MG INH ×2 (07:46→19:30)
[2024-09-14] MEDS: SODIUM CHLORIDE 3% FOR INHALATION INH (07:50)
[2024-09-14] MEDS: NORVASC 5 MG PO (08:53)
[2024-09-14] MEDS: VIBRAMYCIN 100 MG PO ×2 (08:53→19:44)
[2024-09-14] MEDS: THERAGRAN 1 TABLET PO (08:53)
[2024-09-14] MEDS: TAMIFLU 75 MG PO ×2 (08:53→19:44)
[2024-09-14] MEDS: EVISTA 60 MG PO (08:53)
[2024-09-14] MEDS: PROTONIX 40 MG PO (08:54)
[2024-09-14] MEDS: MUCINEX 1200 MG PO ×2 (08:54→19:44)
--- NOTE | 2024-09-14 10:20 | CM ---
CM following re: discharge planning.
Reviewed pt's chart, met with pt. Pt continues to require 45 L HFNC with FIO2 50%, continue supportive care.
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 Emotional support offered and provided.
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
D/c plan: home with anticipated no needs. Pt expressed her desire that her supplemental Oxygen will be weaned off.
CM will follow with discharge plan updates as hospitalization progresses.
[2024-09-14] MEDS: ROCEPHIN 1000 MG IV (17:54)
[2024-09-14] MEDS: LOVENOX 40 MG SC (17:54)
[2024-09-14] MEDS: STERILE WATER FOR INJECTION 10 ML IV (17:54)
[2024-09-15] VITALS (11 sets, daily range): BP systolic 111–141; BP diastolic 55–106
--- NOTE | 2024-09-15 03:06 | PTCARENOTE ---
assumed care of patient. pt is AAOx3, able to make needs known. VSS. on HFNC 40L 45% 95%. some SOB on exertion. productive cough, sputum specimen sent down per order. able to use BSC by self without issues. no complaints of pain. care ongoing.
[2024-09-15 05:39] LABS: % Basophils 0.2 % (0-2); % Immature Granulocytes 0.5 % (0-0.5); % Monocytes 11.2 % (1.7-9.3); % Neutrophils 59.1 % (42.2-75.2); Absolute Lymphocytes 1.2 10^3/uL (1.2-3.4); Absolute Monocytes 0.5 10^3/uL (0.1-0.6); Absolute Neutrophils 2.5 10^3/uL (1.4-6.5); Hematocrit 37.9 % (37.0-47.0); Hemoglobin 12.6 g/dL (12.0-16.0); Mean Corp Hgb Conc. 33.2 g/dL (33.0-37.0); Mean Corpuscular Hgb 28.8 pg (27.0-31.0); Mean Corpuscular Volume 86.5 fL (81.0-99.0); Mean Platelet Volume 10.9 fL (7.4-10.4); Nucleated Red Blood Cells % 0 %; Platelet Count 191 10^3/uL (130-400); Red Blood Cell Count 4.38 10^6/uL (4.20-5.40); Red Cell Dist. Width 12.9 % (11.5-14.5); White Blood Cell Count 4.2 10^3/uL (4.8-10.8)
[2024-09-15 05:55] LABS: ALT (SGPT) 24 U/L (0-35); AST (SGOT) 26 U/L (14-36); Albumin 2.9 g/dl (3.5-5.0); Alkaline Phosphatase 90 U/L (38-126); Blood Urea Nitrogen 7 mg/dl (7-17); Calcium 9.1 mg/dl (8.4-10.2); Carbon Dioxide 27 mmol/L (22-30); Chloride 107 mmol/L (98-107); Estimated Creatinine Clearance 81 ml/min; Glucose 107 mg/dl (70-99); Potassium 3.6 mmol/L (3.5-5.1); Sodium 138 mmol/L (135-145); Total Bilirubin 0.5 mg/dl (0.2-1.3); Total Protein 5.3 g/dl (6.3-8.2); eGFR > 60.00
[2024-09-15] MEDS: PULMICORT 0.25 MG INH ×2 (07:26→19:38)
[2024-09-15] MEDS: SODIUM CHLORIDE 3% FOR INHALATION 1 VIAL INH ×4 (07:26→19:39)
[2024-09-15] MEDS: DUONEB 3 ML INH ×4 (07:26→19:38)
--- NOTE | 2024-09-15 07:52 | W.PN.HOSP.TC ---
Today's Communication/Plan
-
Oxygen requirements have now improved from high flow O2 to 6 L midflow nasal cannula
Out of bed to chair today
Patient making good progress, although significant amount of progress still to make
If patient stable out of bed, vital signs stable, O2 requirements stable or better, can transfer to telemetry later today
Continue pulmonary toilet, antibiotics as below
Assessment / Plan
Assessment / Plan
Physical Exam
General: Well Developed, Well Nourished and No Apparent Distress
HEENT: Normocephalic, Moist mucous membranes and Atraumatic
Respiratory: Scattered rhonchi bilaterally
Cardiac: S1/S2 and Regular Rate and Rhythm
GI: Soft, Non Tender, Non Distended and Normal Bowel Sounds
Musculoskeletal: No Cyanosis and No Edema
Skin: Warm. Dry.
Neuro: AAOx3. Nonfocal/grossly intact
Assessment/Plan
73-year-old female with past medical history of hypertension, GERD and osteoporosis, presented with shortness of breath. For the 2 days prior to arrival, patient has had sore throat, fever, congestion and dry cough. Multiple family members with
flulike symptoms. Denied chest pain. Denied nausea or vomiting. She was found to be saturating 80% on room air. She does not smoke or drink alcohol.
# Sepsis (fever, tachycardia) secondary to Influenza A Infection and Community Acquired Pneumonia
# Mild right basilar atelectasis/pneumonia
# Influenza A
# Acute hypoxic respiratory failure secondary to the above
-Chest x-ray showed mild right base atelectasis/pneumonia
-Blood cultures with no growth to date
-Follow sputum cultures
-Legionella and Strep pneumoniae antigen are both negative
-Continue Tamiflu to complete a 10 day course
-Continue Ceftriaxone/doxycycline
-Patient is no longer requiring high flow oxygen (was on high flow as of 09/14/24), but as of 09/15/24, patient is on 6 L mid-flow nasal cannula
-Mucinex 1200 mg BID, 3% saline nebulizer, vest therapy, Incentive Spirometer Q1H while awake, Acapella Device, QID Duonebs+Pulmicort, Out of Bed to Chair, Aspiration Precautions, HOB>30 to 45 degrees
-Avoid LANGUAGE PATH suppressing medications
# Transaminitis - RESOLVED - secondary to influenza
-Continue to monitor
#Essential Hypertension
-Continue amlodipine
#GERD
-Continue omeprazole
#Osteoporosis
-Continue raloxifene
Code Status: Full code
DVT Prophylaxis: SCDs. Lovenox.
Regular diet
Anticipated Discharge: > 48 hours
Subjective/Interval History
-
Date of Service: September 15, 2024
Patient was seen and examined. She reported that her symptoms have significantly improved, now down to mid-flow nasal cannula 6 L (from previous high flow oxygen).
Objective Data
-
Labs:
Laboratory Results
09/15/24
04:31
WBC 4.2 L
Hgb 12.6
Hct 37.9
Plt Count 191
Sodium 138
Potassium 3.6
Chloride 107
Carbon Dioxide 27
BUN 7
Creatinine 0.6
Glucose 107 H
Calcium 9.1
Total Bilirubin 0.5
AST 26
ALT 24
Alkaline Phosphatase 90
Vital Signs:
Vital Signs
Temp Pulse Resp BP Pulse Ox
98.3 F 73 18 123/73 91
09/15/24 04:12 09/15/24 07:42 09/15/24 07:42 09/15/24 06:00 09/15/24 07:48
I&O
09/14/24 09/15/24 09/16/24
06:59 06:59 06:59
Intake Total 720 / 720 1005 / 1005
Balance 720 / 720 1005 / 1005
[2024-09-15] MEDS: NORVASC 5 MG PO (08:00)
[2024-09-15] MEDS: EVISTA 60 MG PO (08:03)
[2024-09-15] MEDS: PROTONIX 40 MG PO (08:03)
[2024-09-15] MEDS: TAMIFLU 75 MG PO ×2 (08:03→20:00)
[2024-09-15] MEDS: VIBRAMYCIN 100 MG PO ×2 (08:03→20:00)
[2024-09-15] MEDS: THERAGRAN 1 TABLET PO (08:03)
[2024-09-15] MEDS: MUCINEX 1200 MG PO ×2 (08:03→20:00)
[2024-09-15] MEDS: OSCAL 500 + D 1000 MG PO (12:20)
--- NOTE | 2024-09-15 16:27 | CM ---
Patient with Dx Sepsis secondary to Influenza A Infection and Community Acquired Pneumonia. O2 4L. Receiving IV Abx, Tamiflu.
Message to Dr Qureshi requesting PT/OT Evals for d/c planning.
Plan follow up after seen by PT/OT.
[2024-09-15] MEDS: STERILE WATER FOR INJECTION 10 ML IV (17:32)
[2024-09-15] MEDS: ROCEPHIN 1000 MG IV (17:32)
[2024-09-15] MEDS: LOVENOX 40 MG SC (17:32)
[2024-09-16] VITALS (9 sets, daily range): BP systolic 119–143; BP diastolic 65–101
--- NOTE | 2024-09-16 04:46 | PTCARENOTE ---
Patient offers no complaints; denies any pain or sob. Sp02 93-96% on 4L NC. NSR/SB on telemetry. Turning self while in bed. Up ad tay with standby assist to BR, steady gait. No gi/gu complaints, +BM. Using call morrell appropriately. pt thankful for
care. tray table and call morrell within reach. Droplet precautions maintained.
[2024-09-16 05:01] LABS: % Basophils 0.4 % (0-2); % Eosinophils 1.5 % (0-6); % Immature Granulocytes 0.7 % (0-0.5); % Lymphocytes 26.9 % (20.5-51.1); % Monocytes 8.8 % (1.7-9.3); % Neutrophils 61.7 % (42.2-75.2); Absolute Eosinophils 0.1 10^3/uL (0-0.7); Absolute Lymphocytes 1.4 10^3/uL (1.2-3.4); Absolute Monocytes 0.5 10^3/uL (0.1-0.6); Absolute Neutrophils 3.3 10^3/uL (1.4-6.5); Hematocrit 38.3 % (37.0-47.0); Hemoglobin 12.8 g/dL (12.0-16.0); Mean Corp Hgb Conc. 33.4 g/dL (33.0-37.0); Mean Corpuscular Hgb 28.8 pg (27.0-31.0); Mean Corpuscular Volume 86.3 fL (81.0-99.0); Mean Platelet Volume 10.3 fL (7.4-10.4); Nucleated Red Blood Cells % 0 %; Platelet Count 233 10^3/uL (130-400); Red Blood Cell Count 4.44 10^6/uL (4.20-5.40); Red Cell Dist. Width 12.9 % (11.5-14.5); White Blood Cell Count 5.4 10^3/uL (4.8-10.8)
[2024-09-16 05:26] LABS: Blood Urea Nitrogen 10 mg/dl (7-17); Calcium 9.8 mg/dl (8.4-10.2); Carbon Dioxide 26 mmol/L (22-30); Chloride 106 mmol/L (98-107); Estimated Creatinine Clearance 81 ml/min; Glucose 112 mg/dl (70-99); Magnesium 1.9 mg/dl (1.6-2.3); Potassium 3.9 mmol/L (3.5-5.1); Sodium 138 mmol/L (135-145); eGFR > 60.00
[2024-09-16] MEDS: PULMICORT 0.25 MG INH ×2 (07:31→19:45)
[2024-09-16] MEDS: DUONEB 3 ML INH ×4 (07:31→19:45)
[2024-09-16] MEDS: SODIUM CHLORIDE 3% FOR INHALATION 1 VIAL INH ×4 (07:34→19:45)
[2024-09-16] MEDS: MUCINEX 1200 MG PO ×2 (09:33→20:08)
[2024-09-16] MEDS: NORVASC 5 MG PO (09:34)
[2024-09-16] MEDS: THERAGRAN 1 TABLET PO (09:34)
[2024-09-16] MEDS: OSCAL 500 + D 1000 MG PO (09:34)
[2024-09-16] MEDS: TAMIFLU 75 MG PO ×2 (09:34→20:08)
[2024-09-16] MEDS: EVISTA 60 MG PO (09:34)
[2024-09-16] MEDS: PROTONIX 40 MG PO (09:34)
[2024-09-16] MEDS: VIBRAMYCIN 100 MG PO ×2 (09:34→20:08)
--- NOTE | 2024-09-16 10:54 | W.PN.HOSP.TC ---
Addendum entered and electronically signed by Rubén Qureshi MD 09/16/24 11:24:
Correction: 10 more doses of Tamiflu left to complete 10 days (first dose was before September 12, 2024)
Original Note:
Today's Communication/Plan
-
Patient still requiring oxygen although O2 requirements have improved significantly
Patient does not want to go home with oxygen
Home oxygen assessment test
Continue pulmonary toilet, out of bed, antibiotics
Transfer to telemetry
Assessment / Plan
Assessment / Plan
Physical Exam
General: Well Developed, Well Nourished and No Apparent Distress
HEENT: Normocephalic, Moist mucous membranes and Atraumatic
Respiratory: Scattered rhonchi bilaterally
Cardiac: S1/S2 and Regular Rate and Rhythm
GI: Soft, Non Tender, Non Distended and Normal Bowel Sounds
Musculoskeletal: No Cyanosis and No Edema
Skin: Warm. Dry.
Neuro: AAOx3. Nonfocal/grossly intact
Assessment/Plan
73-year-old female with past medical history of hypertension, GERD and osteoporosis, presented with shortness of breath. For the 2 days prior to arrival, patient has had sore throat, fever, congestion and dry cough. Multiple family members with
flulike symptoms. Denied chest pain. Denied nausea or vomiting. She was found to be saturating 80% on room air. She does not smoke or drink alcohol.
# Sepsis (fever, tachycardia) secondary to Influenza A Infection and Community Acquired Pneumonia
# Mild right basilar atelectasis/pneumonia
# Influenza A
# Acute hypoxic respiratory failure secondary to the above
-Chest x-ray showed mild right base atelectasis/pneumonia
-Blood cultures with no growth to date
-Follow sputum cultures
-Legionella and Strep pneumoniae antigen are both negative
-Continue Tamiflu to complete a 10 day course (first dose was evening of September 12, 2024)
-Continue Ceftriaxone/doxycycline
-Patient is no longer requiring high flow oxygen (was on high flow as of 09/14/24), then 6 L mid-flow NC (as of 09/15/24), but as of 09/16/24, patient is on 2 L mid-flow nasal
cannula
-Mucinex 1200 mg BID, 3% saline nebulizer, vest therapy, Incentive Spirometer Q1H while awake, Acapella Device, QID Duonebs+Pulmicort, Out of Bed to Chair, Aspiration Precautions, HOB>30 to 45 degrees
-Avoid VESSEL CAPTAIN suppressing medications
-Continue PT/OT, mucus clearing as above, home oxygen assessment test
# Transaminitis - RESOLVED - secondary to influenza
-Continue to monitor
#Essential Hypertension
-Continue amlodipine
#GERD
-Continue omeprazole
#Osteoporosis
-Continue raloxifene
Code Status: Full code
DVT Prophylaxis: SCDs. Lovenox.
Regular diet
Anticipated Discharge: 24 - 48 hours
Subjective/Interval History
-
Date of Service: September 16, 2024
Patient was seen and examined. She reported less shortness, still coughing, denied any chest pain or fever.
Objective Data
-
Labs:
Laboratory Results
09/16/24
04:36
WBC 5.4
Hgb 12.8
Hct 38.3
Plt Count 233 D
Sodium 138
Potassium 3.9
Chloride 106
Carbon Dioxide 26
BUN 10
Creatinine 0.6
Glucose 112 H
Calcium 9.8
Vital Signs:
Vital Signs
Temp Pulse Resp BP Pulse Ox
98.1 F 66 15 137/70 91
09/16/24 07:05 09/16/24 07:35 09/16/24 07:35 09/16/24 06:00 09/16/24 09:40
I&O
09/15/24 09/16/24 09/17/24
06:59 06:59 06:59
Intake Total 1005 / 1005 600 / 600
Balance 1005 / 1005 600 / 600
--- NOTE | 2024-09-16 14:34 | PTCARENOTE ---
Pt downgraded to tele. Belongings collected from room. Transferred to [facility] via stretcher.
--- NOTE | 2024-09-16 14:45 | PTCARENOTE ---
Received pt from IMU via stretcher. Pt ambulated to bed with assist x1. AAOx3. No complaints of pain. Assessed and oriented to room. Will cont to monitor.
[2024-09-16] MEDS: LOVENOX 40 MG SC (17:49)
[2024-09-16] MEDS: ROCEPHIN 1000 MG IV (17:52)
[2024-09-16] MEDS: STERILE WATER FOR INJECTION 10 ML IV (17:52)
[2024-09-16] MEDS: FLUSH (NSS) 2 FLUSH IV (17:56)
[2024-09-17] VITALS (8 sets, daily range): BP systolic 108–160; BP diastolic 60–91; PULSE 92–102; O2SAT 93
[2024-09-17] MEDS: PULMICORT 0.25 MG INH ×2 (07:36→19:10)
[2024-09-17] MEDS: SODIUM CHLORIDE 3% FOR INHALATION 1 VIAL INH ×4 (07:36→19:10)
[2024-09-17] MEDS: DUONEB 3 ML INH ×4 (07:36→19:10)
[2024-09-17] MEDS: THERAGRAN 1 TABLET PO (08:45)
[2024-09-17] MEDS: PROTONIX 40 MG PO (08:46)
[2024-09-17] MEDS: TAMIFLU 75 MG PO ×2 (08:46→20:34)
[2024-09-17] MEDS: EVISTA 60 MG PO (08:46)
[2024-09-17] MEDS: VIBRAMYCIN 100 MG PO (08:46)
[2024-09-17] MEDS: OSCAL 500 + D 1000 MG PO (08:46)
[2024-09-17] MEDS: NORVASC 5 MG PO (08:46)
[2024-09-17] MEDS: MUCINEX 1200 MG PO ×2 (08:46→20:34)
[2024-09-17 09:39] LABS: Blood Urea Nitrogen 10 mg/dl (7-17); Calcium 10.3 mg/dl (8.4-10.2); Carbon Dioxide 25 mmol/L (22-30); Chloride 102 mmol/L (98-107); Estimated Creatinine Clearance 81 ml/min; Glucose 105 mg/dl (70-99); Potassium 4.2 mmol/L (3.5-5.1); Sodium 138 mmol/L (135-145); eGFR > 60.00
--- NOTE | 2024-09-17 11:39 | W.PN.HOSP.TC ---
Today's Communication/Plan
-
see A/P
Assessment / Plan
Assessment / Plan
73-year-old female with past medical history of hypertension, GERD and osteoporosis, presented with shortness of breath.
For 2 days prior to arrival, patient has had sore throat, fever, congestion and dry cough. Multiple family members with flulike symptoms. She was found to be saturating 80% on room air. She does not smoke or drink alcohol.
Assessment/Plan
# Sepsis (fever, tachycardia) POA secondary to Influenza A Infection and Community Acquired Pneumonia
# Mild right basilar atelectasis/pneumonia
# Influenza A
# Acute hypoxic respiratory failure secondary to the above
high flow oxygen -> 2L mid-flow NC, wean as tolerated, pt not on home O2.
Check walking pulse ox
Chest x-ray showed mild right base atelectasis/pneumonia
Blood cultures with no growth. Legionella and Strep pneumoniae antigen are both negative. Sputum culture with Usual Respiratory Jocelin
Continue Tamiflu to complete a 5 day course (first dose was evening of September 12, 2024)
Continue Ceftriaxone/doxycycline x5 days
Cont Mucinex 1200 mg BID, 3% saline nebulizer, vest therapy, Incentive Spirometer Q1H while awake, Acapella Device, QID Duonebs+Pulmicort, Out of Bed to Chair, Aspiration Precautions, HOB>30 to 45 degrees
Avoid DEPARTMENT COORDINATOR suppressing medications
PT/OT recc HH
# Transaminitis secondary to influenza, resolved
# Essential Hypertension
Continue amlodipine
# GERD
Continue omeprazole
# Osteoporosis
Continue raloxifene
Code Status: Full code
DVT Prophylaxis: Lovenox.
Regular diet
Dispo: HH
Anticipated Discharge: Within 24 hours
Subjective/Interval History
-
Date of Service: September 17, 2024
Objective Data
-
Labs:
Laboratory Results
09/17/24
08:31
Sodium 138
Potassium 4.2
Chloride 102
Carbon Dioxide 25
BUN 10
Creatinine 0.6
Glucose 105 H
Calcium 10.3 H
Vital Signs:
Vital Signs
Temp Pulse Resp BP Pulse Ox
37.1 C 89 20 115/64 93
09/17/24 07:27 09/17/24 11:29 09/17/24 11:29 09/17/24 07:27 09/17/24 11:29
I&O
09/16/24 09/17/24 09/18/24
06:59 06:59 06:59
Intake Total 600 / 600 720 / 720
Balance 600 / 600 720 / 720
Review of Systems
-
History Source: Patient
All other systems: Reviewed and negative
Physical Exam
-
General: Well Developed, Well Nourished, Comfortable, Respiratory Distress (mild) and Conversant (speak in full sentences)
HEENT: Normocephalic, Atraumatic, Nose Appears Normal, Ears Appear Normal and Oxygen (2L NC)
Respiratory: Clear to Auscultation and Non Labored Respirations; Negative Accessory Resp Muscle Use
Cardiac: Regular Rhythm and S1/S2
GI: Soft, Nontender, Nondistended and Normal Bowel Sounds
Skin: Warm and Dry
Neuro: Awake, Alert, Oriented and AO x 3
Psych: Calm and Intact Judgement/Insight
Data Reviewed
-
Labs: Labs Reviewed by me
[2024-09-17] MEDS: STERILE WATER FOR INJECTION IV (18:15)
[2024-09-17] MEDS: LOVENOX 40 MG SC (18:15)
[2024-09-18 03:00] VITALS: BP 117/70
[2024-09-18] MEDS: PULMICORT 0.25 MG INH (07:44)
[2024-09-18] MEDS: SODIUM CHLORIDE 3% FOR INHALATION 1 VIAL INH ×2 (07:44→11:03)
[2024-09-18] MEDS: DUONEB 3 ML INH ×2 (07:44→11:03)
[2024-09-18 07:53] LABS: Hematocrit 39.2 % (37.0-47.0); Hemoglobin 12.8 g/dL (12.0-16.0); Mean Corp Hgb Conc. 32.7 g/dL (33.0-37.0); Mean Corpuscular Hgb 28.7 pg (27.0-31.0); Mean Corpuscular Volume 87.9 fL (81.0-99.0); Mean Platelet Volume 9.9 fL (7.4-10.4); Platelet Count 370 10^3/uL (130-400); Red Blood Cell Count 4.46 10^6/uL (4.20-5.40); White Blood Cell Count 5.4 10^3/uL (4.8-10.8)
[2024-09-18 08:00] VITALS: BP 131/76
[2024-09-18 08:20] LABS: Blood Urea Nitrogen 11 mg/dl (7-17); Calcium 9.6 mg/dl (8.4-10.2); Carbon Dioxide 28 mmol/L (22-30); Chloride 102 mmol/L (98-107); Estimated Creatinine Clearance 70 ml/min; Glucose 93 mg/dl (70-99); Potassium 4.3 mmol/L (3.5-5.1); Sodium 140 mmol/L (135-145); eGFR > 60.00
[2024-09-18] MEDS: EVISTA 60 MG PO (08:29)
[2024-09-18] MEDS: OSCAL 500 + D 1000 MG PO (08:30)
[2024-09-18] MEDS: PROTONIX 40 MG PO (08:30)
[2024-09-18] MEDS: MUCINEX 1200 MG PO (08:30)
[2024-09-18] MEDS: NORVASC 5 MG PO (08:30)
[2024-09-18] MEDS: TAMIFLU 75 MG PO (08:30)
[2024-09-18] MEDS: THERAGRAN 1 TABLET PO (08:31)
--- NOTE | 2024-09-18 10:09 | W.PN.HOSP.TC ---
Addendum entered and electronically signed by Marisa Hernandez MD 09/18/24 12:57:
total DC time 36 min
Original Note:
Today's Communication/Plan
-
DC home today
Assessment / Plan
Assessment / Plan
73-year-old female with past medical history of hypertension, GERD and osteoporosis, presented with shortness of breath.
For 2 days prior to arrival, patient has had sore throat, fever, congestion and dry cough. Multiple family members with flulike symptoms. She was found to be saturating 80% on room air. She does not smoke or drink alcohol.
Assessment/Plan
# Sepsis (fever, tachycardia) POA secondary to Influenza A Infection and Community Acquired Pneumonia
# Mild right basilar atelectasis/pneumonia
# Influenza A
# Acute hypoxic respiratory failure secondary to the above
high flow oxygen -> 2L mid-flow NC -> RA; pt not on home O2.
Chest x-ray showed mild right base atelectasis/pneumonia
Blood cultures with no growth. Legionella and Strep pneumoniae antigen are both negative. Sputum culture with Usual Respiratory Jocelin
s/p Tamiflu x5 days
s/p Ceftriaxone/doxycycline x5 days
Cont Mucinex 1200 mg BID, 3% saline nebulizer, vest therapy, Incentive Spirometer Q1H while awake, Acapella Device, QID Duonebs+Pulmicort, Out of Bed to Chair, Aspiration Precautions, HOB>30 to 45 degrees
Avoid REHABILITATION THERAPY TECHNICIAN suppressing medications
PT/OT recc HH
# Transaminitis secondary to influenza, resolved
# Essential Hypertension
Continue amlodipine
# GERD
Continue omeprazole
# Osteoporosis
Continue raloxifene
Code Status: Full code
DVT Prophylaxis: Lovenox.
Regular diet
Dispo: HH
Anticipated Discharge: Today
Subjective/Interval History
-
Date of Service: September 18, 2024
Objective Data
-
Labs:
Laboratory Results
09/18/24
07:35
WBC 5.4
Hgb 12.8
Hct 39.2
Plt Count 370 D
Sodium 140
Potassium 4.3
Chloride 102
Carbon Dioxide 28
BUN 11
Creatinine 0.7
Glucose 93
Calcium 9.6
Vital Signs:
Vital Signs
Temp Pulse Resp BP Pulse Ox
36.8 C 70 18 131/76 93
09/18/24 08:00 09/18/24 08:00 09/18/24 08:00 09/18/24 08:00 09/18/24 08:00
I&O
09/17/24 09/18/24 09/19/24
06:59 06:59 06:59
Intake Total 720 / 720 1040 / 1040
Balance 720 / 720 1040 / 1040
Review of Systems
-
History Source: Patient
All other systems: Reviewed and negative
Physical Exam
-
General: Well Developed, Well Nourished, No Apparent Distress, Comfortable and Conversant (speak in full sentences)
HEENT: Normocephalic, Atraumatic, Nose Appears Normal and Ears Appear Normal; Negative Oxygen
Respiratory: Clear to Auscultation and Non Labored Respirations; Negative Accessory Resp Muscle Use
Cardiac: Regular Rhythm and S1/S2
GI: Soft, Nontender, Nondistended and Normal Bowel Sounds
Skin: Warm and Dry
Neuro: Awake, Alert, Oriented and AO x 3
Psych: Calm and Intact Judgement/Insight
Data Reviewed
-
Labs: Labs Reviewed by me
--- NOTE | 2024-09-18 10:33 | CM ---
MD entered order for discharge.
Spoke with pt she said she was ready for dc. Reviewed IMM and she wants dc today.
Offered Vn she requested [facility] Referral placed in care port.
Julius will drive her home .
PLAN Home with [facility]
[2024-09-18 12:00] VITALS: BP 144/81
--- NOTE | 2024-09-18 12:36 | W.DCSUMMARY ---
Discharge Summary
Discharge Data
Date of Admission: 09/11/24
Date of Discharge: 09/18/24
-
Pending Results: No
Hospital Course
Principal Diagnosis:
Sepsis (fever, tachycardia) secondary to Influenza A Infection and Community Acquired Pneumonia
Acute hypoxic respiratory failure, resolved
Chronic Diagnoses:�
Essential Hypertension, continue amlodipine
GERD, continue omeprazole
Osteoporosis, continue raloxifene
Consultations:�
None
Procedures:�
None
Clinical course:�
This is a 73-year-old female with past medical history of hypertension, GERD and osteoporosis, presented with shortness of breath.
Of note, multiple family members at home also experienced flulike symptoms. She was found hypoxic with saturation ~80% on room air.
Problem 1:
Sepsis (fever, tachycardia) secondary to Influenza A Infection and Community Acquired Pneumonia.
This was associated with acute hypoxic respiratory failure, which resolved.
She was needing high flow oxygen support on admission, and this was slowly weaned down and back to room air.
Her walking pulse ox prior to discharge did not show any need for home oxygen therapy.
She received and completed Tamiflu for 5 days while in the hospital.
She also received and completed antibiotics ceftriaxone and doxycycline for 5 days in the hospital.
She was discharged home with home health.
As for the rest of her medical problems, they were stable during her hospital stay.
Discharge Plan
-
Patient Disposition: Home with Home Care
Discharge Diagnosis/Procedures: # Sepsis (fever, tachycardia) due to Influenza A Infection and Community Acquired Pneumonia (completed treatment for both);
# Acute hypoxic respiratory failure (resolved)
Condition: Fair
Diet: As tolerated
Activity: As tolerated
Driving Restrictions: As prior to admission
Referrals:
Deya Parsons MD [Family Provider] - in less than 1 week
Prescriptions:
New
guaifenesin 600 mg Tablet Extended Release 12hr
1,200 mg PO Q12 Qty: 14 0RF
Continued
amlodipine 5 mg Tablet
5 mg PO DAILY
omeprazole 20 mg Capsule,Delayed Release(Dr/Ec)
20 mg PO DAILY
raloxifene 60 mg Tablet
60 mg PO DAILY
multivitamin Tablet
1 tab PO DAILY
calcium carb, citrate-vit D3 [Citracal-D3 Slow Release] 600 mg-12.5 mcg (500 unit) Tablet Extended Release
2 tab PO DAILY
Discharge Orders:
Discharge Patient (As Directed); Ordered 09/18/24
Ordered By: Marisa Hernandez
Discharge Date and Time
Print Language: SCOTTISH
== END 2024-09-18 14:11 | disposition home health service (06) | DRG 871 ==
LOC: 3 WEST ACU 19:36
PROVIDERS: Hospitalist; ADMITTING PHYSICIAN Hospitalist; ATTENDING PHYSICIAN Internal Medicine; EMERGENCY PHYSICIAN Student in an Organized Health Care Education/Training Program; FAMILY PHYSICIAN Family Medicine
DX: A41.89 Other specified sepsis (principal); J10.00 Influenza due to other identified influenza virus with unspecified type of pneumonia; J96.01 Acute respiratory failure with hypoxia; J98.11 Atelectasis; K21.9 Gastro-esophageal reflux disease without esophagitis; M81.0 Age-related osteoporosis without current pathological fracture; Z11.52 Encounter for screening for COVID-19; I10 Essential (primary) hypertension
CPT/HCPCS: 71045; 80048; 80053; 83605; 83735; 85025; 85027; 87040; 87070; 87205; 87449; 87502; 87811; 87899; 93005; 94640; 94667; 94668; 94669; 96365; 96375; 97162; 99291

== ENCOUNTER → 2024-12-05 08:46 | Outpatient (REF) | payer MEDICARE, OTHER, SELFPAY ==
[2024-12-05 09:52] LABS: % Basophils 0.3 % (0-2); % Eosinophils 3.3 % (0-6); % Immature Granulocytes 0.3 % (0-0.5); % Lymphocytes 29.8 % (20.5-51.1); % Monocytes 10.1 % (1.7-9.3); % Neutrophils 56.2 % (42.2-75.2); Absolute Eosinophils 0.2 10^3/uL (0-0.7); Absolute Lymphocytes 1.8 10^3/uL (1.2-3.4); Absolute Monocytes 0.6 10^3/uL (0.1-0.6); Absolute Neutrophils 3.5 10^3/uL (1.4-6.5); Hematocrit 45.1 % (37.0-47.0); Hemoglobin 14.4 g/dL (12.0-16.0); Mean Corp Hgb Conc. 31.9 g/dL (33.0-37.0); Mean Corpuscular Hgb 28.6 pg (27.0-31.0); Mean Corpuscular Volume 89.5 fL (81.0-99.0); Mean Platelet Volume 11.4 fL (7.4-10.4); Nucleated Red Blood Cells % 0 %; Platelet Count 271 10^3/uL (130-400); Red Blood Cell Count 5.04 10^6/uL (4.20-5.40); Red Cell Dist. Width 13.2 % (11.5-14.5); White Blood Cell Count 6.2 10^3/uL (4.8-10.8)
[2024-12-05 11:11] LABS: ALT (SGPT) 23 U/L (0-35); AST (SGOT) 24 U/L (14-36); Albumin 4.2 g/dl (3.5-5.0); Alkaline Phosphatase 115 U/L (38-126); Blood Urea Nitrogen 16 mg/dl (7-17); Calcium 9.5 mg/dl (8.4-10.2); Carbon Dioxide 25 mmol/L (22-30); Chloride 108 mmol/L (98-107); Glucose 98 mg/dl (70-99); HDL Cholesterol 72 mg/dl; LDL Cholesterol, Calculated 83 mg/dl; Potassium 4.3 mmol/L (3.5-5.1); Sodium 138 mmol/L (135-145); Total Bilirubin 0.6 mg/dl (0.2-1.3); Total Cholesterol 168 mg/dl (50-199); Total Protein 6.7 g/dl (6.3-8.2); Triglyceride 66 mg/dl (10-149); Very Low Density Lipoprotein 13 mg/dl (0-30); eGFR > 60.00
[2024-12-05 11:21] LABS: Glycohemoglobin (HgbA1c) 5.4 % (4.0-5.6)
== END ==
LOC: REG 08:46
PROVIDERS: ATTENDING PHYSICIAN Family Medicine
DX: I10 Essential (primary) hypertension (principal); R73.9 Hyperglycemia, unspecified; R74.8 Abnormal levels of other serum enzymes; Z00.00 Encounter for general adult medical examination without abnormal findings; Z79.899 Other long term (current) drug therapy; R53.83 Other fatigue
CPT/HCPCS: 36415; 80053; 80061; 83036; 85025